=== PATIENT | female | born 1945 | race Caucasian/White ===

== ENCOUNTER 2016-06-29 05:41 | Inpatient (IN) | payer MEDICARE, BC ==
[2016-06-15 13:53] VITALS: BMI 33.1
[~2016-06-29 05:41] MED LIST: ACETAMINOPHEN TAB 500 MG TAB PO ONE; MELOXICAM 7.5 MG TAB PO ONE; TRANEXAMIC ACID 1,000 MG in SODIUM CHLORIDE 0.9% 100 ML IVPB ONE
[2016-06-29] MEDS ORDERED: MIDAZOLAM 2 MG/2 ML VIAL IV PRN (05:53)
[2016-06-29] MEDS ORDERED: LACTATED RINGERS 1,000 ML IV SCH (05:53)
[2016-06-29] MEDS ORDERED: ONDANSETRON 4 MG/2 ML VIAL IVP ONE (05:53)
[2016-06-29] MEDS ORDERED: DEXAMETHASONE SOD PHOSPHATE 10 MG/ML 1 ML VIAL IV ONE (05:53)
[2016-06-29] MEDS ORDERED: LIDOCAINE 1% 20 ML VIAL (10MG/ML) FOR IV START INTRADERMA ONE (06:34)
[2016-06-29] MEDS ORDERED: MIDAZOLAM 2 MG/2 ML VIAL ONE (07:22)
[2016-06-29] MEDS ORDERED: GLYCOPYRROLATE 0.2 MG/ML 2 ML VIAL ONE (07:22)
[2016-06-29] MEDS ORDERED: NEOSTIGMINE 1 MG/ML 10 ML VIAL ONE (07:22)
[2016-06-29] MEDS ORDERED: SODIUM CHLORIDE 0.9% 100 ML BAG ONE (07:22)
[2016-06-29] MEDS ORDERED: SUCCINYLCHOLINE CHLORIDE 100 MG/5 ML SYR IV ONE (07:22)
[2016-06-29] MEDS ORDERED: fentaNYL (PF) 50 MCG/ML 2 ML AMP ONE (07:22)
[2016-06-29] MEDS ORDERED: ROCURONIUM BROMIDE 10 MG/ML 10 ML VIAL IV ONE (07:22)
[2016-06-29] MEDS ORDERED: TRANEXAMIC ACID 1,000 MG/10 ML VIAL ONE (07:22)
[2016-06-29] MEDS ORDERED: ePHEDrine 50 MG/ML 1 ML AMP ONE (07:22)
[2016-06-29] MEDS ORDERED: LIDOCAINE 1% INJ 10MG/ML (20 ML MDV) ONE (07:22)
[2016-06-29] MEDS ORDERED: HEPARIN SODIUM,PORCINE 10,000 UNIT/ML 1 ML VIAL ONE (07:22)
[2016-06-29] MEDS ORDERED: PROPOFOL 10 MG/ML 20 ML VIAL IV ONE (07:22)
[2016-06-29] MEDS ORDERED: HYDROmorphone (PF) 1 MG/ML ONE (07:22)
[2016-06-29] MEDS ORDERED: LACTATED RINGERS 1,000 ML BAG IV ONE (07:22)
[2016-06-29] MEDS: ceFAZolin 2 GM in SODIUM CHLORIDE 0.9% 100 ML IVPB ONE ×2 (07:46→13:08)
[2016-06-29] MEDS: ceFAZolin 3,000 MG in SODIUM CHLORIDE 0.9% IRRIGATIO 3,000 ML IRRIGATION ONE ×2 (07:46→13:09)
[2016-06-29] MEDS: LACTATED RINGERS 1,000 ML IV ONE ×2 (08:15→13:09)
[2016-06-29] MEDS: ROPIVACAINE 246.25 MG, EPINEPHrine 0.5 MG, KETOROLAC 30 MG, cloNIDine HCL/PF 80 MCG, WA... MISCELLANE ONE ×10 (08:17→09:01)
--- NOTE | 2016-06-29 09:18 | FL ---
EXAMINATION TYPE: FL guidance operating room DATE OF EXAM: 06/29/2016 9:13 AM HISTORY: Flouroscopy time 60 seconds of fluoroscopy provided. IMPRESSION: 1. Fluoroscopy time.
--- NOTE | 2016-06-29 09:21 | XR ---
EXAMINATION TYPE: XR Hip Limited RT DATE OF EXAM: 06/29/2016 9:13 AM COMPARISON: NONE HISTORY: Postop There is a prosthetic hip in near anatomic alignment. There is soft tissue edema and emphysema. IMPRESSION: 1. Postoperative change. Appears in near-anatomic alignment.
--- NOTE | 2016-06-29 09:28 | P.OP ---
Date of Procedure: 06/29/16 Preoperative Diagnosis: Severe osteoarthritis right hip Postoperative Diagnosis: Severe osteoarthritis right hip Procedure(s) Performed: Right total hip arthroplasty with a direct anterior approach Implants: [employer] nephew Polarstem size 4 standard [employer]hew R3, 3 hole acetabular shell, 54 mm [employer] reflection 6.5 mm cancellus screw, 25 mm, 20mm [employer] R3, XLPE 20 acetabular liner [employer]hew Oxinium femoral head 36 m, +0 All components were press-fit. The articulation is ceramic on polyethylene. Anesthesia: GETA Surgeon: Jkae Perales Mold Sander #1: Polly Casper Estimated Blood Loss (ml): 550 (177 mL returned with Cell Saver) Pathology: other (Femoral head) Condition: stable Disposition: PACU Indications for Procedure: After failure of conservative treatment we discussed the surgical and nonsurgical treatment options at length. Patient wishes to proceed with a total hip arthroplasty with a direct anterior approach. Complications specific to this procedure were discussed at length, including but not limited to infection, leg length discrepancy, dislocation, and nerve injury. Patient is aware of all these complications and informed consent was obtained Operative Findings: The findings are consistent with severe osteoarthritis of the right hip. Description of Procedure: Patient was seen and evaluated in the preoperative area, consent was reviewed, and the surgical site was marked with a skin marker. Patient was then brought to the operating room and given prophylactic antibiotics intravenously. 1 g of Tranexamic acid was also given. A spinal anesthetic was attempted by the anesthesia department, but was unable to be obtained. A general anesthetic was administered.. A Paez catheter was then placed by the nursing staff. The patient was then placed on the hand table with the bony prominences well- padded. The hip area was then prepped and draped in usual sterile fashion. A universal timeout was then performed, which confirmed the patient's name, surgical site, ALLERGIES, and procedure being performed. Next the incision site was located at 1 cm distal and 1 cm lateral to the anterior superior iliac spine. The skin and subcutaneous tissues were sharply incised. Incision was carefully dissected down to the fascia overlying the tensor fascia matthew muscle. This fascia was then incised in line with the incision. Next, using blunt finger dissection, the tensor fascia matthew muscle was dissected off its investing fascia. The muscle was then carefully retracted laterally with a cobra retractor over the lateral neck of the femur. Next, the circumflex vessels were identified and cauterized using the AquaMantis device. The anterior hip capsule was then exposed. The capsule was then opened and an inverted T fashion. Retention sutures were placed in the inferior arms of the capsule. Cobra retractors were then placed intracapsularly. The proximal femur was then visualized. The femoral neck was then osteotomized appropriate level above the lesser trochanter. Small amount of traction was placed with the hand table. A small wedge of bone was then removed from the remaining femoral head. Next, using a corkscrew femoral head was easily removed from the acetabulum. On gross visual inspection, the femoral head had complete loss of articular cartilage in multiple periarticular osteophytes. Attention was then turned to the acetabulum. the acetabulum was exposed and any remaining labrum was excised. Sequential reaming of the acetabulum was performed using fluoroscopic guidance. When the appropriate size was reached, a trial was then placed. The position and fit of the trial was checked with fluoroscopy. The trial was then removed. Then, using fluoroscopic guidance, the final implant was impacted at 20 of anteversion and 40 of abduction, and fully seated in the acetabulum. 2 screws were then placed in the acetabulum. Again fluoroscopy was used to check position of the screws. Next, the liner was then impacted, with a 20 elevated liner located in the anterior superior quadrant. Component locking was confirmed. Attention was then directed to the femur. With the aid of the Soheila table, the femur was externally rotated to approximately 130, extended, and abducted under the opposite leg. A side hook was then placed under the proximal femur, and the side hook elevator was used to elevate the proximal femur. Retractors were then placed. A capsular release was performed, as well as a release of the conjoined tendon, which afforded excellent visualization of the proximal femur. Next, a box osteotome was used to lateralize the proximal femur. A second hand was then used to locate the femoral canal. Sequential broaching was then performed with appropriate size which afforded excellent fixation in the proximal femur. The calcar was then planed. A trial was then placed with appropriate head and neck, and the hip was gently reduced with the aid of the Soheila table. Fluoroscopy was then used to check position of the components, as well as to ensure equal leg lengths. The hip was then gently dislocated and the trials were then removed. Final implants were then impacted and the hip was again reduced. Final fluoroscopic x-rays confirmed that the components were in anatomic position, as well as equal leg lengths. The hip was also taken through range of motion, and found to be stable. The hip was then copiously irrigated with antibiotic solution with pulsatile lavage. The hip was then irrigated with Irrisept solution. The soft tissues were then injected with ropivacaine solution. A second dose of 1 g of Tranexamic acid was given. the fascia was then closed with 2-0 strata fix suture. The subcutaneous tissue was closed with 3-0 Vicryl. The subcuticular tissue was closed with 30 strata fix suture. The skin was then closed with Dermabond tape. The patient was then transferred to the recovery room in stable condition. The Asst. Polly Casper was required due to the complexity of surgery, and the need for skilled surgical corsetier for positioning, draping, exposure, retraction, and closure of the wound.and closure of the wound.
[2016-06-29] MEDS ORDERED: DIAZEPAM 5 MG TAB PO PRN ×2 (09:38)
[2016-06-29] MEDS ORDERED: HYDROmorphone 1 MG/ML 1 ML SYRINGE IVP PRN ×3 (09:38)
[2016-06-29] MEDS ORDERED: HYDROcodone/APAP 5-325MG 1 EACH TAB PO PRN (09:38)
[2016-06-29] MEDS ORDERED: NALOXONE 0.4 MG/ML 1 ML VIAL IV PRN (09:38)
[2016-06-29] MEDS ORDERED: ONDANSETRON 4 MG/2 ML VIAL IVP PRN (09:38)
[2016-06-29] MEDS ORDERED: MAGNESIUM HYDROXIDE 2,400 MG/10 ML CUP PO PRN (09:38)
[2016-06-29] MEDS: HYDROmorphone 1 MG/ML 1 ML SYRINGE IVP PRN ×4 (09:54→10:20)
--- NOTE | 2016-06-29 10:26 | XR ---
EXAMINATION TYPE: XR Hip Limited RT DATE OF EXAM: 06/29/2016 9:51 AM COMPARISON: NONE HISTORY: post op R anterior hip There is a prosthetic hip in near anatomic alignment. There is soft tissue edema and emphysema. IMPRESSION: 1. Postoperative change. Appears in near-anatomic alignment.
[2016-06-29] MEDS: SODIUM CHLORIDE 0.9% 1,000 ML IV SCH ×2 (13:36→21:05)
[2016-06-29] MEDS: amLODIPine 2.5 MG TAB PO SCH (17:12)
[2016-06-29] MEDS: ceFAZolin 2 GM in SODIUM CHLORIDE 0.9% 100 ML IVPB SCH ×2 (17:12→23:03)
--- NOTE | 2016-06-29 18:40 | CONS ---
DATE OF CONSULTATION: REASON FOR CONSULTATION: Advice regarding hypertension and multiple medical problems requested by Dr. Perales. HISTORY OF PRESENT ILLNESS: This 71-year-old woman with past history of hypertension, history of degenerative joint disease, history of tonsillectomy, being followed by Dr. Berenice Keys in the outpatient setting is admitted after right total hip joint arthroplasty. There is no history of chest pain, no palpitations. No history of headache, loss of consciousness, nausea, diarrhea, fever, rigors, chills. The patient is mildly dehydrated. PAST MEDICAL HISTORY: 1. Hypertension. 2. History of degenerative joint disease. 3. History of tonsillectomy. 4. History of joint replacement. Medications prior to admission include: 1. Norvasc 2.5 mg 2. Zestril 20 mg daily 3. Motrin 600 to 800 q.6 p.r.n. ALLERGIES: None. FAMILY HISTORY: History of cancer in the family. SOCIAL HISTORY: No history of smoking, no history of alcohol. REVIEW OF SYSTEMS: ENT: No diminished hearing or diminished vision. CARDIOVASCULAR: No angina. RESPIRATORY: No cough or hemoptysis. GI: No nausea. : No dysuria. NERVOUS SYSTEM: No numbness or weakness. ALLERGY/IMMUNOLOGY: No asthma or hayfever. MUSCULOSKELETAL: As mentioned earlier. HEMATOLOGY: No history of anemia. ENDOCRINE: No history of diabetes or hypothyroidism. CONSTITUTIONAL: As mentioned earlier. DERMATOLOGY: Negative. RHEUMATOLOGY: Negative. PSYCHIATRY: As mentioned earlier. PHYSICAL EXAMINATION: The patient is alert and oriented x3. Pulse 83, blood pressure 130/62, respirations 20, temperature is normal, pulse ox 94% on room air. HEENT: Conjunctivae normal. Oral mucosa moist. NECK: No jugular venous distention. No carotid bruit. No lymph node enlargement. CARDIOVASCULAR: S1 and S2, muffled. RESPIRATORY: Breath sounds diminished at the bases. No rhonchi, no crackles. ABDOMEN: Soft, nontender. No mass palpable. LEGS: No edema, no swelling. NERVOUS SYSTEM: Higher function as mentioned. Moves all four limbs. No focal motor deficits. LABS: Not available. ASSESSMENT: 1. Status post right total hip joint arthroplasty for degenerative joint disease. 2. Hypertension. 3. History of degenerative joint disease. 4. History of back pain. 5. History of joint replacement. 6. FULL CODE. RECOMMENDATIONS AND DISCUSSION: This 71-year-old woman who presented with multiple complex medical issues, will monitor the patient. Continue the current medications. Continue with symptomatic treatment. I recommend to resume the home medications. DVT prophylaxis, IV fluids. Watch for dehydration. Otherwise, continue to monitor. We will also order basic labs also. Incentive spirometry. Discussed with the patient and patient may be asked to follow with Dr. Berenice Keys after discharge. Thank you, Dr. Perales, for letting us participate in the care of this patient.
[2016-06-29] MEDS: SENNOSIDES-DOCUSATE SODIUM 1 EACH TAB PO SCH (20:59)
[2016-06-29] MEDS: ASPIRIN 325 MG TAB PO SCH (21:00)
[2016-06-29] MEDS: hydrOXYzine PAMOATE 25 MG CAP PO PRN (21:03)
[2016-06-29] MEDS: HYDROcodone/APAP 5-325MG 1 EACH TAB PO PRN (21:03)
[2016-06-30] MEDS: hydrOXYzine PAMOATE 25 MG CAP PO PRN (05:25)
[2016-06-30] MEDS: HYDROcodone/APAP 5-325MG 1 EACH TAB PO PRN ×2 (05:25→11:28)
[2016-06-30 07:26] LABS: Basophils % (A) 0 %; CH 30.1; CHCM 32.7; Eosinophils % (A) 0 %; HCT 25.8 % (34.0-46.0); HDW 2.35; HGB 8.2 gm/dL (11.4-16.0); Luc # (Auto) 0.07; Luc % (Auto) 1; Lymphocytes # (A) 1.1 k/uL (1.0-4.8); Lymphocytes % (A) 15 %; MCH 29.4 pg (25.0-35.0); MCHC 31.7 g/dL (31.0-37.0); MCV 92.5 fL (80.0-100.0); Mean Platelet Volume 9.1; Monocytes # (A) 0.4 k/uL (0-1.0); Monocytes % (A) 6 %; Neutrophils # (A) 5.9 k/uL (1.3-7.7); Neutrophils % (A) 78 %; RBC 2.79 m/uL (3.80-5.40); RDW 12.9 % (11.5-15.5); WBC 7.6 k/uL (3.8-10.6); WBC (Perox) 8.54
[2016-06-30 07:41] LABS: Anion Gap 8 mmol/L; Blood Urea Nitrogen 18 mg/dL (7-17); Calcium 8.4 mg/dL (8.4-10.2); Carbon Dioxide 26 mmol/L (22-30); Chloride 101 mmol/L (98-107); Glucose 94 mg/dL (74-99); Non-African American GFR(MDRD) >60 (>60 ml/min/1.73 sqM); Potassium 4.7 mmol/L (3.5-5.1); Sodium 135 mmol/L (137-145)
[2016-06-30] MEDS: ASPIRIN 325 MG TAB PO SCH ×2 (08:44→22:02)
[2016-06-30] MEDS: MELOXICAM 7.5 MG TAB PO SCH (08:44)
--- NOTE | 2016-06-30 08:57 | P.PN ---
Subjective Principal diagnosis: Status post right total hip arthroplasty This is a pleasant 71-year-old female who is status post right total hip arthroplasty. Today's postoperative day #1. Patient is seen and evaluated at bedside today. she has no new complaints. Her pain is reasonably controlled. She is not been up with physical therapy yet. Objective - Vital Signs Vital signs: Vital Signs Temp 98 F 06/30/16 07:00 Pulse 76 06/30/16 07:00 Resp 16 06/30/16 07:00 BP 111/53 06/30/16 07:00 Pulse Ox 98 06/30/16 07:00 Intake & Output 06/29/16 06/30/16 06/30/16 18:59 06:59 18:59 Intake Total 5250 Output Total 775 700 Balance 4475 -700 Intake: IV 5250 Sodium Chloride 0.9% 1, 150 000 ml @ 75 mls/hr IV . [id number] BRANDON Rx#:[id number] Output: Urine 225 700 Estimated Blood Loss 550 Other: Voiding Method Indwelling Catheter Indwelling Catheter - Exam The patient does not appear in acute distress. Alert and orientated 3. Dressing is clean dry and intact. Incision appears fine with no erythema or active drainage. Calf is soft and nontender. Good foot and ankle motion without difficulty. Sensation and circulatory status is intact. - Labs CBC & Chem 7: 06/30/16 07:03 06/30/16 07:03 Labs: Abnormal Lab Results - Last 24 Hours (Table) 06/30/16 06/30/16 Range/Units 07:03 07:03 RBC 2.79 L (3.80-5.40) m/uL Hgb 8.2 L (11.4-16.0) gm/dL Hct 25.8 L (34.0-46.0) % Sodium 135 L (137-145) mmol/L BUN 18 H (7-17) mg/dL Assessment and Plan (1) Status post right hip replacement Status: Acute (2) Primary osteoarthritis of right hip Status: Acute Plan: Continue with routine postoperative care. Pain control and anticoagulation. Physical therapy today. Patient's hemoglobin was noted to be 8.2 with postoperative blood loss anemia. We'll follow patient closely. Anticipate discharge to home with home care tomorrow. The patient does well physical therapy and is asymptomatic this afternoon potential discharge later today.
[2016-06-30] MEDS: LISINOPRIL 20 MG TAB PO SCH (12:12)
[2016-06-30] MEDS: amLODIPine 2.5 MG TAB PO SCH (12:32)
[2016-06-30] MEDS: SODIUM CHLORIDE 0.9% 1,000 ML IV SCH (12:33)
[2016-06-30] MEDS ORDERED: HYDROcodone/APAP 7.5-325MG 1 EACH TAB PO PRN (17:27)
[2016-06-30] MEDS: HYDROcodone/APAP 7.5-325MG 1 EACH TAB PO PRN ×2 (17:46→22:56)
[2016-06-30] MEDS: SENNOSIDES-DOCUSATE SODIUM 1 EACH TAB PO SCH (22:02)
[2016-07-01 02:40] VITALS: BP 109/52
[2016-07-01] MEDS: HYDROcodone/APAP 7.5-325MG 1 EACH TAB PO PRN ×2 (06:29→13:57)
[2016-07-01 07:19] LABS: Basophils % (A) 1 %; CH 29.8; CHCM 32.3; Eosinophils # (A) 0.1 k/uL (0-0.7); Eosinophils % (A) 1 %; HCT 24.8 % (34.0-46.0); HDW 2.27; HGB 7.9 gm/dL (11.4-16.0); Luc # (Auto) 0.08; Luc % (Auto) 1; Lymphocytes # (A) 1.5 k/uL (1.0-4.8); Lymphocytes % (A) 24 %; MCH 29.5 pg (25.0-35.0); MCHC 31.8 g/dL (31.0-37.0); MCV 92.5 fL (80.0-100.0); Monocytes # (A) 0.5 k/uL (0-1.0); Monocytes % (A) 8 %; Neutrophils % (A) 65 %; RBC 2.68 m/uL (3.80-5.40); RDW 12.8 % (11.5-15.5); WBC 6.1 k/uL (3.8-10.6); WBC (Perox) 6.19
[2016-07-01 07:38] LABS: Anion Gap 9 mmol/L; Blood Urea Nitrogen 21 mg/dL (7-17); Calcium 8.7 mg/dL (8.4-10.2); Carbon Dioxide 27 mmol/L (22-30); Chloride 102 mmol/L (98-107); Glucose 94 mg/dL (74-99); Non-African American GFR(MDRD) >60 (>60 ml/min/1.73 sqM); Potassium 4.5 mmol/L (3.5-5.1); Sodium 138 mmol/L (137-145)
[2016-07-01 08:02] VITALS: RESP 16; TEMP 97.4
--- NOTE | 2016-07-01 08:37 | PN ---
DATE OF SERVICE: 06/30/2016 This 71-year-old woman who was admitted after right total hip joint arthroplasty is improving significantly. No chest pain or palpitation. No fever. On exam, alert and oriented x3. Pulse is 76, blood pressure 111/53, [id number], temperature 98 degrees, pulse ox 98% on room air. HEENT: Conjunctivae normal. NECK: No jugular venous distention. CARDIOVASCULAR: S1 and S2, muffled. RESPIRATORY: Breath sounds diminished at the bases. No rhonchi, no crackles. ABDOMEN: Soft, nontender. LEGS: Status post arthroplasty. NERVOUS SYSTEM: No focal deficits. LABS: Hemoglobin 8.2. ASSESSMENT: 1. Status post right total hip joint arthroplasty for degenerative joint disease. 2. Postoperative anemia possibly dilutional as expected. 3. Hyponatremia. 4. Hypertension. 5. History of degenerative joint disease. 6. History of back pain. 7. History of joint replacement. 8. FULL CODE. RECOMMENDATIONS AND DISCUSSION: This 71-year-old woman who presented after surgery. At this time, I recommend to continue current medications and continue to monitor and symptomatic treatment. Otherwise, at this time I would recommend repeat labs. Continue to monitor. Resume the rest of the medications and DVT prophylaxis. Further recommendations to follow.
--- NOTE | 2016-07-01 08:55 | P.DS ---
Providers Date of admission: 06/29/16 05:41 Expected date of discharge: 07/01/16 Attending physician: Jake Perales Consults: 06/29/16 09:38 Consult Physician Routine Consulting Provider: Safia Silva Consult Reason/Comments: medical management Do you want consulting provider notified?: Yes Primary care physician: Berenice Keys - Discharge Diagnosis(es) (1) Primary osteoarthritis of right hip Current Visit: Yes Status: Acute (2) Status post right hip replacement Current Visit: Yes Status: Acute Hospital Course: This is a 71-year-old female with known history of degenerative arthritis of the right hip. The patient presents for evaluation. After discussion and consideration patient elects to proceed with total hip arthroplasty. The patient is seen preoperatively by Dr. Keys and cleared for surgery. Patient is admitted to [facility] on 06/29/2016 for right anterior total hip arthroplasty. The procedures performed without complication or sequelae. The patient is doing well postoperatively. Labs and vital signs are stable on day of discharge. Hemoglobin is 7.9 today and the patient is relatively asymptomatic. On day of discharge patient's hip incision is healing well. There is minimal erythema. There is no drainage noted at this time. There is minimal soft tissue swelling to the hip and thigh. Patient has full foot and ankle motion without difficulty or pain. Neurovascular status to the right lower extremity is intact. Patient is discharged to home today in good condition. Pertinent Studies: Laboratory Tests 07/01/16 06:57 WBC 6.1 RBC 2.68 L Hgb 7.9 L Hct 24.8 L Patient Condition at Discharge: Stable Plan - Discharge Summary New Discharge Prescriptions: Aspirin EC [Ecotrin] 325 mg PO BID #60 tablet. HYDROcodone/APAP 7.5-325MG [Eldon 7.5-325] 1 - 2 tab PO Q4-6H PRN #60 tab PRN Reason: Pain Sennosides-Docusate Sodium [Senokot-S] 2 tab PO DAILY #60 tablet Discharge Medication List Ibuprofen [Motrin] 600 - 800 mg PO Q6H PRN 06/15/16 [History] Lisinopril [Zestril] 20 mg PO DAILY 06/15/16 [History] amLODIPine [Norvasc] 2.5 mg PO DAILY 06/15/16 [History] Aspirin EC [Ecotrin] 325 mg PO BID #60 tablet. 06/30/16 [Rx] Sennosides-Docusate Sodium [Senokot-S] 2 tab PO DAILY #60 tablet 06/30/16 [Rx] HYDROcodone/APAP 7.5-325MG [Eldon 7.5-325] 1 - 2 tab PO Q4-6H PRN #60 tab [Rx] Follow up Appointment(s)/Referral(s): Jake Perales DO [Doctor of Osteopathic Medicine] - 2 Weeks Activity/Diet/Wound Care/Special Instructions: Walker - has at home Home Care - [facility] - [phone] Weightbearing as tolerated with walker Daily dressing changes Keep incision clean and dry Call [facility] with questions or concerns [phone] Discharge Disposition: HOME WITH HOME HEALTH SERVICES
[2016-07-01] MEDS: amLODIPine 2.5 MG TAB PO SCH (09:03)
[2016-07-01] MEDS: LISINOPRIL 20 MG TAB PO SCH (09:03)
[2016-07-01] MEDS: ASPIRIN 325 MG TAB PO SCH (09:04)
[2016-07-01] MEDS: MELOXICAM 7.5 MG TAB PO SCH (09:04)
[2016-07-01 11:04] VITALS: PULSE 86
--- NOTE | 2016-07-01 16:07 | PN ---
DATE OF SERVICE: 07/01/2016 This 71-year-old woman was admitted after right hip joint arthroplasty, is improving. No chest pain, no palpitations. No fever. On exam, alert and oriented x3. Pulse 81, blood pressure 105/59, respirations 16, temperature 97.4, pulse ox 93% on room air. HEENT: Conjunctivae normal. NECK: No jugular venous distention. CARDIOVASCULAR: S1 and S2, muffled. RESPIRATORY: Breath sounds diminished at the bases. No rhonchi, no crackles. ABDOMEN: Soft, nontender. LEGS: Status post surgery. NERVOUS SYSTEM: No focal deficits. LABS: WBC 6, hemoglobin is 7.9, platelets 144. ASSESSMENT: 1. Status post right total hip joint arthroplasty and degenerative joint disease. 2. Postoperative anemia, possibly dilutional as expected. 3. Hyponatremia. 4. Hypertension. 5. History of degenerative joint disease. 6. History of back pain. 7. History of joint replacement. 8. FULL CODE. RECOMMENDATIONS AND DISCUSSION: I recommend to continue the current medications, continue monitoring and symptomatic treatment. Otherwise I recommend to follow up labs with the primary physician. Continue with DVT prophylaxis, continue the rest of the home medications, further medications and recommendations per Orthopedic Surgery.
== END 2016-07-01 14:11 | disposition home health service (06) | DRG 470 ==
LOC: 2ORMAIN 05:41 → 3SUR 10:27
PROVIDERS: ADMIT Orthopaedic Surgery; ATTEND Orthopaedic Surgery
PROC: 0SR904A Replacement of Right Hip Joint with Ceramic on Polyethylene Synthetic Substitute, Uncemented, Open Approach (ICD-10-PCS; principal; 2016-06-29 07:30)
DX: M16.11 Unilateral primary osteoarthritis, right hip (principal); D64.9 Anemia, unspecified; E87.1 Hypo-osmolality and hyponatremia; E86.0 Dehydration; I10 Essential (primary) hypertension; Z79.1 Long term (current) use of non-steroidal anti-inflammatories (NSAID); Z79.899 Other long term (current) drug therapy
CPT/HCPCS: 73501; 80048; 85025; 86850; 86891; 86900; 86901; 88300